=== PATIENT | female | born 1955 | race Caucasian/White ===

== ENCOUNTER 2020-02-10 09:22 | Outpatient (CLI) | payer OTHER, SELFPAY ==
--- NOTE | ~2020-02-10 | US_ITS ---
EXAMINATION: US_ABSCYSTIMG_US DATE: 02/10/2020 10:48 INDICATION: Right branchial cleft cyst TECHNIQUE: A time-out was performed to verify the patient's name, date of , and procedure to be performed . The procedure and its benefits and risks were discussed with the patient. Risks specifically discus sed included bleeding and infection. The patient understood the risks and agreed to proceed. The neck was prepped and draped in the usual sterile manner. 2 mL 1% lidocaine was used for local anesthesia . A 20-gauge needle was advanced into the cyst with continuous sonographic guidance. 12 mm of opaque milky white-colored fluid was aspirated. The needle was removed and a sterile bandage was applied. T here were no immediate complications. FINDINGS: Grayscale ultrasound images demonstrate aspiration needle advanced into a 4.3 x 3.8 x 1.7 cm anechoic brachial cleft cyst at the right neck. IMPRESSION: 1. Successful ultrasound-guided fine needle aspiration of a 4.3 x 3.8 x 1.7 cm branchial cleft cyst at the right neck yielding 12 mL opaque white fluid. Reviewed, dictated and finalized at location A.
== END 2020-02-10 09:23 | disposition home or self-care (01) ==
PROVIDERS: PCP Internal Medicine; Visit Provider Nurse Practitioner
DX: L02.11 Cutaneous abscess of neck (principal)
CPT/HCPCS: 10160; 76942

== ENCOUNTER 2020-02-15 08:19 | Emergency (ER) | payer OTHER, SELFPAY ==
[2020-02-15 08:35] VITALS: BP 110/64; PULSE 92; RESP 16; TEMP 36.7; O2SAT 96
--- NOTE | 2020-02-15 09:04 | ED.URI ---
HPI - URI/Sore Throat General Chief Complaint: Upper Respiratory Infection Stated Complaint: Cough Time Seen by Provider: 02/15/20 09:05 Source: patient Mode of arrival: ambulatory Limitations: no limitations History of Present Illness HPI Narrative: Crystal Andrews is a 64 yo female with a PMH of COPD, anxiety, who comes to express care with complaints of cough and mild COPD exacerbation. She was unable to get into her primary care office because of work yesterday but is feels terrible today and once medications to manage her symptoms. She does not tolerate rescue inhalers well because the albuterol makes her jittery and flighty; she originally asked for Levaquin but refused chest Xray Related Data Home Medications Medication Instructions Recorded Confirmed ipratropium 0.5 mg-albuterol 3 mg 3 ml INHALATION TID PRN ml 03/22/19 02/15/20 (2.5 mg base)/3 mL nebulization soln Allergies Allergy/AdvReac Type Severity Reaction Status Date / Time No Known Allergies Allergy Unverified 02/15/20 08:40 Review of Systems Review of Systems: Narrative: CONSTITUTIONAL: Denies fever, chills, sweats. EYES: Denies visual changes, redness, discharge. ENT: Denies rhinorrhea, congestion, sore throat, otalgia. CARDIOVASCULAR: Denies chest pain, palpitations, edema. RESPIRATORY: mild dyspnea, wheezing, mild cough GASTROINTESTINAL: Denies abdominal pain, nausea, vomiting, diarrhea. GENITOURINARY: Denies dysuria, hematuria, abnormal discharge SKIN: Denies rash or itching. NEUROLOGIC: Denies numbness, or focal weakness. PSYCHIATRIC: Denies anxiety or depression. [facility] Past Medical History Medical History (Updated 02/15/20 @ 09:23 by Chula Gallardo CNP) Pneumothorax of right lung after biopsy Surgical History Surgical History Previous section Family History Family History Mother Hypertension Sibling Patient's sister is in good health Patient's brother is in good health Father Family history of lung cancer Patient's father is Social History Social History Smoking status: Heavy tobacco smoker Alcohol intake: never Comments At time of signature, I agree with nursing past medical, surgical, social and family history. There is no relevant family history pertinent to the presenting complaint. Exam Narrative: Exam Narrative: GENERAL: This is a well-nourished, well-developed patient, in mild distress. HEAD: normocephalic, atraumatic. EYES: PERRL. Sclera clear/white. Vision is grossly intact. EARS: External ears normal, Hearing grossly intact. NOSE: External nose normal without nasal discharge, nares without redness, no rhinorrhea. THROAT: Mucous membranes moist, posterior pharynx pink in color NECK: Neck supple, non-tender CARDIOVASCULAR: Regular rate and rhythm without murmurs, gallops, or rubs. RESPIRATORY: Diminished to auscultation. Breath sounds coarse and equal bilaterally. No wheezes, rales, or rhonchi. GASTROINTESTINAL: Abdomen soft, , SKIN: warm, intact with no suspicious lesions or rash, good texture and turgor. NEURO: awake, alert, and oriented to person, place and time. There were no obvious focal neurologic abnormalities. Steady gait EXTREMITIES: Normal range of motion. BACK: Nontender without deformity Course Course Emergency Course: Cough mild COPD Patient refused chest x-ray-given Zithromax Tessalon and 4 days of steroids. I will not give her Levaquin without knowing that she needs that level of treatment; patient verbalized understanding. Follow-up with PCP Vital Signs Vital signs: Vital Signs Temperature 98.1 F 02/15/20 08:35 Pulse Rate 92 02/15/20 08:35 Respiratory Rate 16 02/15/20 08:35 Blood Pressure 110/64 02/15/20 08:35 Pulse Oximetry 96 02/15/20 08:35 Temperature 98.1 F
== END 2020-02-15 09:28 | disposition home or self-care (01) ==
PROVIDERS: Emergency Provider Nurse Practitioner; PCP Internal Medicine
DX: J44.1 Chronic obstructive pulmonary disease with (acute) exacerbation (principal); F17.200 Nicotine dependence, unspecified, uncomplicated; F41.9 Anxiety disorder, unspecified
CPT/HCPCS: 99213; G0463

== ENCOUNTER 2020-05-27 13:10 | Outpatient (CLI) | payer SELFPAY ==
--- NOTE | ~2020-05-27 | US_ITS ---
EXAMINATION: US_ABSCYSTIMG_US DATE: 05/27/2020 14:35 INDICATION: Right lateral branchial cleft cyst. TECHNIQUE: The procedure including the risks and benefits was discussed with the patient. Risks discu ssed included bleeding, infection, and allergic reaction. The patient understood the risks and agreed to proceed. The skin overlying the anterolateral right neck was prepped and draped in usual sterile fashion. Anesthetic was administered with 1% lidocaine subcutaneously. A 21-gauge needle was advanc ed under continuous ultrasound observation to the cystic lesion of interest. Fluid was aspirated. The needle was removed and the entry site was cleaned and dressed. Post procedure ultrasound demonstra camilo no hemorrhage. FINDINGS: Ultrasound images demonstrate a 3.5 x 2.5 x 3.0 cm cystic lesion at the left neck containin g fluid and small amount of hypoechoic posterior layering debris. The drainage needle was observed wi thin the cyst on real-time imaging which was not recorded. 11 mm of opaque milky white fluid was aspi rated. IMPRESSION: 1. Successful Ultrasound-guided drainage of a right branchial cleft cyst giving 11 mm of opaque cream y white-colored fluid. Reviewed, dictated and finalized at location A. LING OPERATOR IMPRESSION: 1. Successful Ultrasound-guided drainage of a right branchial cleft cyst giving 11 mm of opaque creamy white-colored fluid.
== END 2020-05-27 13:11 | disposition home or self-care (01) ==
PROVIDERS: PCP Internal Medicine; Visit Provider Nurse Practitioner
DX: Q18.0 Sinus, fistula and cyst of branchial cleft (principal)
CPT/HCPCS: 10160; 76942

== ENCOUNTER 2021-01-25 07:04 | Outpatient (CLI) | payer MEDICARE, SELFPAY ==
[2021-01-25 07:50] LABS: Alanine Aminotransferase 13 U/L (4-35); Albumin Level 3.9 g/dL (3.5-5.1); Alkaline Phosphatase 52 U/L (38-126); Anion Gap 5 mmol/L (8-16); Aspartate Amino Transferase 24 U/L (14-36); Bilirubin,Total 0.3 mg/dL (0.2-1.3); Blood Urea Nitrogen 13 mg/dL (7-17); Calcium 9.5 mg/dL (8.4-10.2); Carbon Dioxide 28 mmol/L (22-30); Chloride 105 mmol/L (98-107); Cholesterol 224 mg/dL (0-200); Estimated Glomerular Filt Rate > 60; Glucose 102 mg/dL (65-110); HDL Direct 59 mg/dL; Sodium 138 mmol/L (137-145); Triglycerides 113 mg/dL (<150)
[2021-01-25 08:01] LABS: LDL Cholesterol Direct 115 mg/dL
[2021-01-25 09:49] LABS: Vitamin D 25 Hydroxy 46.2 ng/mL
== END 2021-01-25 07:05 | disposition home or self-care (01) ==
PROVIDERS: PCP Internal Medicine; Visit Provider Internal Medicine
DX: E55.9 Vitamin D deficiency, unspecified (principal); E78.5 Hyperlipidemia, unspecified; Z00.00 Encounter for general adult medical examination without abnormal findings
CPT/HCPCS: 36415; 80053; 80061; 82306

== ENCOUNTER 2021-05-03 13:06 | Outpatient (CLI) | payer MEDICARE, SELFPAY ==
--- NOTE | ~2021-05-03 | US_ITS ---
EXAMINATION: US abscess cyst aspiration DATE: 05/03/2021 13:48 INDICATION: Sinus, fistula, and cyst of brachial cleft, right side. TECHNIQUE: The procedure including the risks, benefits, and alternatives was discussed with the patie nt. Risks discussed included bleeding and infection. The patient understood the risks and agreed to p roceed. The skin overlying the right neck was prepped and draped in usual sterile fashion. Anestheti c was administered with 1% lidocaine subcutaneously. An 18 gauge spinal needle was then used to aspi rated a right neck cyst under continuous sonographic guidance. The entry site was cleaned and dressed . There were no immediate complications. FINDINGS: Ultrasound images demonstrate the needle in a 3.8 x 5.1 x 2.1 cm cyst in right neck. IMPRESSION: 1. Ultrasound-guided needle aspiration of a right second brachial cleft cyst yielding 16 mL of opaque , rogers fluid. Reviewed, dictated and finalized at location A. INCT POLICE CAPTAIN IMPRESSION: 1. Ultrasound-guided needle aspiration of a right second brachial cleft cyst faroese elding 16 mL of opaque, rogers fluid.
== END 2021-05-03 13:07 | disposition home or self-care (01) ==
PROVIDERS: PCP Internal Medicine; Visit Provider Nurse Practitioner
DX: Q18.0 Sinus, fistula and cyst of branchial cleft (principal)
CPT/HCPCS: 10160; 76942

== ENCOUNTER 2021-06-14 09:02 | Emergency (ER) | payer MEDICARE, SELFPAY ==
[2021-06-14 09:26] VITALS: BP 133/55; PULSE 95; RESP 16; TEMP 36.9; O2SAT 99
--- NOTE | 2021-06-14 09:52 | ED.URI ---
HPI - URI/Sore Throat General Chief Complaint: Upper Respiratory Infection Stated Complaint: sinus Infection Time Seen by Provider: 06/14/21 09:35 Source: patient and RN notes reviewed Mode of arrival: ambulatory Limitations: no limitations History of Present Illness HPI Narrative: Patient presents today complaining of 3-day history of rhinorrhea with clear nasal discharge, nasal congestion and sinus pressure, bilateral eye watering, headache, body aches and chills. Denies fever, cough, sore throat. She has been taking Advil with some relief. She did a rapid COVID-19 test at work on the day her symptoms began, and it was negative. MD elicited complaint: rhinorrhea and nasal congestion Related Data Allergies Allergy/AdvReac Type Severity Reaction Status Date / Time No Known Allergies Allergy Verified 01/27/21 08:54 Review of Systems Review of Systems: CONSTITUTIONAL: Denies fever, or sweats.+ Body aches, chills EYES: Denies visual changes, redness, or discharge.+ Eye watering ENT: Denies sore throat, or otalgia.+ Congestion, rhinorrhea CARDIOVASCULAR: Denies chest pain, palpitations, or edema. RESPIRATORY: Denies cough or dyspnea. GASTROINTESTINAL: Denies abdominal pain, nausea, vomiting, or diarrhea. GENITOURINARY: Denies dysuria or hematuria. SKIN: Denies rash, itching, or wounds. MUSCULOSKELETAL: Denies back pain, joint pain, or myalgia. NEUROLOGIC: Denies numbness, tingling, or weakness.+ Headache PSYCH: Denies depression or anxiety. [facility] Past Medical History Medical History Branchial cleft cyst Chronic obstructive pulmonary disease, unspecified Hyperlipidemia, unspecified (11/12/18) Pneumothorax of right lung after biopsy Unspecified asthma, uncomplicated Vitamin D deficiency Surgical History Surgical History Hx of breast augmentation Previous section Family History Family History Mother Hypertension Sibling Patient's sister is in good health Patient's brother is in good health Father Family history of lung cancer Patient's father is Social History Social History Smoking packs per day: 1 Smoking cigarettes per day: 20.0 Years smoked: 30 Smoking pack-years: 30.00 Smoking status: Current every day smoker (Still not wanting to quit) Tobacco type: cigarettes Second hand tobacco smoke exposure: No Alcohol intake: former Substance use: never Substance use type: does not use Comments At time of signature, I have reviewed and agree with nursing past medical, surgical, social and family history unless otherwise noted. Please see nursing chart for further information. There is no relevant family history pertinent to the presenting complaint Exam Narrative: GENERAL: Well-appearing, well-nourished, and in no acute distress. HEAD: Normocephalic, atraumatic. EYES: EOMI. PERRL. No redness or drainage at this time. Conjunctivae normal. ENT: Mucous membranes pink and moist. Nares congested with rhinorrhea. TMs normal bilaterally. Throat normal. Uvula midline. NECK: Normal AROM. Supple. No lymphadenopathy. CHEST: No respiratory distress. Clear to auscultation. HEART: Regular rate and rhythm. No murmur appreciated. Normal peripheral pulses. EXTREMITIES: Normal range of motion. No edema. SKIN: Warm, dry, no rash. Capillary refill normal. Normal skin turgor. NEURO: No focal deficits. Alert and oriented x3. Gait steady. PSYCH: Normal affect. No signs of depression or anxiety. Course Course Level of Care: Express Care Visit Vital Signs Vital signs: Vital Signs Temperature 98.5 F 06/14/21 09:26 Pulse Rate 95 06/14/21 09:26 Respiratory Rate 16 06/14/21 09:26 Blood Pressure 133/55 L 06/14/21 09:26 Pulse Oximetr
== END 2021-06-14 10:33 | disposition home or self-care (01) ==
PROVIDERS: Emergency Provider Nurse Practitioner; PCP Internal Medicine
DX: J06.9 Acute upper respiratory infection, unspecified (principal); Z20.822 Contact with and (suspected) exposure to COVID-19; F17.210 Nicotine dependence, cigarettes, uncomplicated; J44.9 Chronic obstructive pulmonary disease, unspecified; E78.5 Hyperlipidemia, unspecified
CPT/HCPCS: 87426; 99213; C9803; G0463

== ENCOUNTER 2022-02-01 09:48 | Outpatient (CLI) | payer MEDICARE, SELFPAY ==
[2022-02-01 10:45] LABS: Alanine Aminotransferase 16 U/L (6-35); Albumin Level 4.2 g/dL (3.5-5.1); Alkaline Phosphatase 45 U/L (38-126); Anion Gap 12 mmol/L (8-16); Aspartate Amino Transferase 23 U/L (14-36); Bilirubin,Total 0.5 mg/dL (0.2-1.3); Blood Urea Nitrogen 13 mg/dL (7-17); Calcium 9.3 mg/dL (8.4-10.2); Carbon Dioxide 25 mmol/L (22-30); Chloride 102 mmol/L (98-107); Cholesterol 222 mg/dL (0-200); Estimated Glomerular Filt Rate > 60; Glucose 177 mg/dL (65-110); HDL Direct 47 mg/dL; Potassium 3.8 mmol/L (3.4-5.0); Sodium 139 mmol/L (137-145); Triglycerides 107 mg/dL (<150)
[2022-02-01 10:57] LABS: LDL Cholesterol Direct 129 mg/dL
[2022-02-01 11:10] LABS: Thyroid Stimulating Hormone 0.699 uIU/mL (0.465-4.680)
== END 2022-02-01 09:49 | disposition home or self-care (01) ==
PROVIDERS: PCP Internal Medicine; Visit Provider Nurse Practitioner
DX: E78.5 Hyperlipidemia, unspecified (principal); F32.A Depression, unspecified
CPT/HCPCS: 36415; 80053; 80061; 84443

== ENCOUNTER 2022-06-15 09:19 | Outpatient (CLI) | payer MEDICARE, SELFPAY ==
--- NOTE | ~2022-06-15 | US_ITS ---
EXAMINATION: US guide abscess drainage DATE: 06/15/2022 10:37 INDICATION: Right neck second branchial cleft cyst. TECHNIQUE: The procedure including the risks, benefits, and alternatives was discussed with the patie nt. Risks discussed included bleeding and infection. The patient understood the risks and agreed to p roceed. The skin overlying the right neck was prepped and draped in usual sterile fashion. Anestheti c was administered with 1% lidocaine subcutaneously. An 18 gauge needle was used to aspirate fluid f rom the right neck cyst under continuous sonographic guidance. The entry site was cleaned and dressed . There were no immediate complications. FINDINGS: Ultrasound images demonstrate the needle in a 4.1 x 2.3 x 3.2 cm hypoechoic mass in right n josué, consistent with a recurrent second branchial cleft cyst. IMPRESSION: 1. Ultrasound-guided aspiration of a recurrent right second branchial cleft cyst yielding 14 mL opaqu e, rogers fluid. Reviewed, dictated and finalized at location A. R MAKER IMPRESSION: 1. Ultrasound-guided aspiration of a recurrent right second branchial cleft cys t yielding 14 mL opaque, rogers fluid.
== END 2022-06-15 09:20 | disposition home or self-care (01) ==
PROVIDERS: PCP Internal Medicine; Visit Provider Internal Medicine
DX: Q18.0 Sinus, fistula and cyst of branchial cleft (principal); L02.818 Cutaneous abscess of other sites
CPT/HCPCS: 10160; 76942; 88108; 88305

== ENCOUNTER → 2022-06-15 12:15 | Outpatient (REF) | payer MEDICARE, SELFPAY | LOC: ANHLAB 12:15 | PROVIDERS: PCP Internal Medicine; Visit Provider Internal Medicine | DX: R22.1 Localized swelling, mass and lump, neck (principal) | CPT/HCPCS: 88108; 88305 ==

== ENCOUNTER 2023-01-16 09:38 | Outpatient (CLI) | payer MEDICARE, SELFPAY ==
--- NOTE | ~2023-01-16 | DEXA_ITS ---
Bone Density Report Name: JACKIE TOWNSEND Age: 67 Sex: Female Ethnicity: White Date of : 1955 Indication: postmenopausal; screening for osteoporosis; height loss; Referring Provider: MARIELLE ALVAREZ Study: Bone densitometry was performed. Exam Date: January 16, 2023 Accession number: [id number] Bone Density: Region BMD T-score Z-score Classification AP Spine(L1-L4) 1.063 0.1 2.1 Normal Femoral Neck (Left) 0.615 -2.1 -0.5 Osteopenia Total Hip (Left) 0.685 -2.1 -0.8 Osteopenia Femoral Neck (Right) 0.626 -2.0 -0.4 Osteopenia Total Hip (Right) 0.736 -1.7 -0.3 Osteopenia Total Hip Mean 0.710 -1.9 -0.6 Osteopenia World Health Organization criteria for BMD impression classify patients as: Normal (T-score at or above -1.0), Osteopenia (T-score between -1.0 and -2.5), or Osteoporosis (T-score at or below -2.5). 10-year Fracture Risk(1): Major Osteoporotic Fracture 11% Hip Fracture 3.1% Reported Risk Factors: [place] (), Neck BMD=0.615, BMI=21.4, smoking (1) FRAX(R) Version 3.08. Fracture probability calculated for an untreated patient. Fracture probability may be lower if the patient has received treatment. Clinical Information Provided by Patient: Smokes Patient maximum height was 63 Menopause Age: 50 No regular weight bearing exercise Drinks caffeinated beverages Onset of menses at age 13 Number of children 1 Impression: The patient has low bone mass, based on the Left Total Hip T-score. The patient has an estimated ten-year risk of hip fracture of 3.1% and an estimated ten-year risk of major fracture of 11%, based on the WHO FRAX algorithm. The patient has risk factors, including: smoking. Discussion: BONE DENSITY IS LOW AT ONE OR MORE SKELETAL SITES. THE PATIENT'S BMD AND CLINICAL RISK FACTORS CONTRIBUTE TO THIS PATIENT'S INCREASED RISK OF FRACTURE. This patient's lowest T-score is low at one or more skeletal sites. It meets the World Health Organization's (WHO) criteria for ?low bone mass? (T-score between -1.0 and -2.5). The patient's 10-year risk of hip fracture as calculated by FRAX exceeds the threshold where pharmacological therapy is recommended by the National Osteoporosis Foundation (NOF). However, all treatment decisions require clinical judgment and consideration of individual patient factors, including patient preferences, comorbidities, previous drug use, risk factors not captured in the FRAX model (e.g., frailty, falls, vitamin D deficiency, increased bone turnover, interval significant decline in bone density) and possible under or overestimation of fracture risk by FRAX. The patient should follow a healthful lifestyle (good nutrition with adequate calcium and vitamin D, and appropriate weight-bearing exercise). Follow-Up: Consider a repeat
== END 2023-01-16 09:39 | disposition home or self-care (01) ==
PROVIDERS: PCP Family Medicine; Visit Provider Family Medicine
DX: Z78.0 Asymptomatic menopausal state (principal); M85.89 Other specified disorders of bone density and structure, multiple sites
CPT/HCPCS: 77080

== ENCOUNTER 2023-01-31 08:26 | Outpatient (CLI) | payer MEDICARE, SELFPAY ==
[2023-01-31 09:34] LABS: Hematocrit 43.2 % (37.0-47.0); Mean Corpuscular HGB Conc 32.4 g/dl (32-36); Mean Corpuscular Hemoglobin 30.1 pg (26-34); Mean Corpuscular Volume 92.9 fl (80-100); Mean Platelet Volume 10.6 fl (7.4-10.4); Platelet Count Result 199 k/mm3 (150-375); Red Blood Count 4.65 M/mm3 (4.2-5.4); Red Cell Distribution Width 13.2 % (11.5-14.5); White Blood Count 6.7 K/mm3 (4.5-10.0)
[2023-01-31 09:47] LABS: Alanine Aminotransferase 16 U/L (6-35); Albumin Level 4.1 g/dL (3.5-5.1); Alkaline Phosphatase 50 U/L (38-126); Anion Gap 4 mmol/L (8-16); Aspartate Amino Transferase 24 U/L (14-36); Bilirubin,Total 0.6 mg/dL (0.2-1.3); Blood Urea Nitrogen 14 mg/dL (7-17); Calcium 9.3 mg/dL (8.4-10.2); Carbon Dioxide 28 mmol/L (22-30); Chloride 105 mmol/L (98-107); Estimated Glomerular Filt Rate > 60; Glucose 90 mg/dL (65-110); Potassium 3.8 mmol/L (3.4-5.0); Sodium 137 mmol/L (137-145)
[2023-01-31 09:54] LABS: Hemoglobin A1C 5.6 % (<5.7)
== END 2023-01-31 08:27 | disposition home or self-care (01) ==
LOC: ANHLAB 08:30
PROVIDERS: PCP Family Medicine; Visit Provider Family Medicine
DX: R00.2 Palpitations (principal); J45.909 Unspecified asthma, uncomplicated; J44.9 Chronic obstructive pulmonary disease, unspecified; E55.9 Vitamin D deficiency, unspecified; R73.9 Hyperglycemia, unspecified; Z72.0 Tobacco use
CPT/HCPCS: 36415; 80053; 83036; 85027

== ENCOUNTER 2023-08-09 08:50 | Outpatient (CLI) | payer MEDICARE, SELFPAY ==
--- NOTE | ~2023-08-09 | US_ITS ---
EXAMINATION: US guide abscess drainage DATE: 08/09/2023 09:55 INDICATION: Right second branchial cleft cyst. TECHNIQUE: The procedure including the risks, benefits, and alternatives was discussed with the patie nt. Risks discussed included bleeding and infection. The patient understood the risks and agreed to p roceed. The skin overlying the right neck was prepped and draped in usual sterile fashion. Anestheti c was administered with 1% lidocaine subcutaneously. An 18 gauge needle was used to aspirate the rig ht branchial cleft cyst under continuous sonographic guidance. The entry site was cleaned and dressed . There were no immediate complications. FINDINGS: Ultrasound images demonstrate the needle in a 3.7 x 2.6 x 3.1 cm right second branchial agustina ft cyst. IMPRESSION: 1. Ultrasound-guided needle aspiration of a recurrent right second branchial cleft cyst yielding 15 m L opaque, rogers fluid. Reviewed, dictated and finalized at location A. IMPRESSION: 1. Ultrasound-guided needle aspiration of a recurrent right second branchial cl eft cyst yielding 15 mL opaque, rogers fluid.
== END 2023-08-09 08:51 | disposition home or self-care (01) ==
PROVIDERS: PCP Family Medicine; Visit Provider Nurse Practitioner
DX: L02.91 Cutaneous abscess, unspecified (principal); Q18.0 Sinus, fistula and cyst of branchial cleft; L02.12 Furuncle of neck
CPT/HCPCS: 10160

== ENCOUNTER 2024-08-09 11:57 | Outpatient (CLI) | payer MEDICARE, SELFPAY ==
--- NOTE | ~2024-08-09 | US_ITS ---
EXAMINATION: US_ABSCYSTIMG_US DATE: 08/09/2024 13:33 INDICATION: Branchial cleft cyst TECHNIQUE: The procedure including the risks and benefits was discussed with the patient. Risks discu ssed included bleeding and infection. The patient understood the risks and agreed to proceed. The sk in overlying the right neck was prepped and draped in usual sterile fashion. Anesthetic was administ ered with 1% lidocaine subcutaneously. An 18 gauge needle was advanced under continuous ultrasound o bservation into the cystic lesion of concern. Fluid was aspirated. The needle was removed and the ent ry site was cleaned and dressed. Post procedure ultrasound demonstrated no hemorrhage. FINDINGS: Ultrasound images demonstrate a 3.4 x 3.3 x 2.8 cm complex cystic lesion at the right neck which contains mixed anechoic and hypoechoic complex fluid. The lesion is nearly completely decompres sed at the conclusion of the procedure. 19 mL of opaque milky white fluid was aspirated. IMPRESSION: 1. Successful Ultrasound-guided drainage of a right branchial cleft cyst yielding 19 mL of opaque cre randolph white-colored fluid. Reviewed, dictated and finalized at location A. IMPRESSION: 1. Successful Ultrasound-guided drainage of a right branchial cleft cyst yieldi ng 19 mL of opaque creamy white-colored fluid.
== END 2024-08-09 11:58 | disposition home or self-care (01) ==
PROVIDERS: PCP Family Medicine; Visit Provider Family Medicine
DX: Q18.0 Sinus, fistula and cyst of branchial cleft (principal)
CPT/HCPCS: 10160; 42999; 76942

== ENCOUNTER 2024-09-03 14:20 | Outpatient (CLI) | payer MEDICARE, SELFPAY ==
[2024-09-03 15:31] LABS: Estimated Glomerular Filt Rate > 60
--- OUTSIDE RECORDS SUMMARY | 2024-09-03 15:41 | XMS_ITS | Referral Summary ---
Author Organization [facility] Address [address] [place] [address] Care Team Providers Care Body Art Technician Name Role Phone Jori Ta MD Primary Care Provider [phone] Encounters Date Type Department Care Team Description 09/02/2024 Telephone [place] [facility] ([facility]) - [facility] [address] [facility] [address]th [place] [address] [place] [address] Chula Salazar MS 08/29/2024 10:20 AM CDT Office Visit [place] [facility] ([facility]) - [facility] [address] [facility] 2nd Floor, [address] [place] [address] Naveen Gonzalez MD Sinus, fistula and cyst of branchial cleft (Primary Dx) from Last 3 Months Allergies No known active allergies Medications No known medications Active Problems Patient Care Coordination No te Formatting of this note migh t be different from the original. sinus No known active problems Social History Tobacco Use Types Packs/Day Years Used Date Smoking Tobacco: Never Assessed Comments Unknown Sex and Gender Information Value Date Recorded Sex Assigned at Not on file Legal Sex Female 8:34 AM CDT Gender Identity Not on file Sexual Orientation Not on file Plan of Treatment Not on file Insurance MEDICARE Care Teams Body Art Technician Relationship Specialty Start Date End Date Jori Ta MD [address] [place] [address] PCP - General Family Practice 08/16/24
--- OUTSIDE RECORDS SUMMARY | 2024-09-03 15:41 | XMS_ITS | Clinical Summary ---
Author Organization [facility] Address [address] [place] [address] Care Team Providers Care Clinical Laboratory Director Name Role Phone Jori Ta MD Primary Care Provider [phone] [phone] Allergies No known active allergies Medications No known medications Active Problems Patient Care Coordination No te Formatting of this note migh t be different from the original. 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) from Last 3 Months Social History Tobacco Use Types Packs/Day Years Used Date Smoking Tobacco: Never Assessed Comments Unknown Sex and Gender Information Value Date Recorded Sex Assigned at Not on file Legal Sex Female 8:34 AM CDT Gender Identity Not on file Sexual Orientation Not on file Obstetrics History Plan of Treatment Health Maintenance Due Date Last Done Comments Breast Cancer Screening-Mammogram 1955 Colon Cancer Screening-Colonoscopy 1955 Depression Screening 1955 Fall Risk Assessment 1955 Hepatitis C Screening 1955 Osteoporosis Screening-Bone Density Scan 1955 DTaP/Tdap/Td Vaccine (1 - Tdap) 10/08/1966 Hepatitis B Screening 10/08/1973 Pneumococcal vaccine 65+ (1 of 1 - PCV) 10/08/2005 Zoster Vaccine (1 of 2) 10/08/2005 Well Visit 65+ 10/08/2020 Covid-19 Vaccine (2 - season) 2024 Influenza Vaccine (Season Ended) [address] [place] [address] MEDICARE Care Teams Clinical Laboratory Director Relationship Specialty Start Date End Date Jori Ta MD [address] [place], [place] [id number] PCP - General Family Practice 08/16/24
--- OUTSIDE RECORDS SUMMARY | 2024-09-03 15:41 | XMS_ITS | Encounter Summary ---
Author Organization [facility] Address [address] [place] [address] Phone Care Team Providers Care City Planning Teacher Name Role Phone Jori Ta MD Primary Care Provider [phone] [phone] Encounter Details Date Type Department Care Team (Late st Contact Info) Description 09/02/2024 Telephone [place] [facility] ([facility]) - [facility] [address] [facility] 11th [place] [address] [place] [address] Chula Salazar MS Social History Tobacco Use Types Packs/Day Years Used Date Smoking Tobacco: Never Assessed Comments Unknown Sex and Gender Information Value Date Recorded Sex Assigned at Not on file Legal Sex Female 8:34 AM CDT Gender Identity Not on file Sexual Orientation Not on file documented as of this encounter Miscellaneous Notes * Telephone Encounter - Misha Cervantes - 09/02/2024 12:45 PM CDT Imaging called re order, IB sent. documented in this encounter Plan of Treatment Not on file documented as of this encounter Visit Diagnoses Not on filedocumented in this encounter Care Teams City Planning Teacher Relationship Specialty Start Date End Date Jori Ta MD [address] [place], [place] [id number] PCP - General Family Practice 08/16/24 documented as of this encounter
== END 2024-09-03 14:21 | disposition home or self-care (01) ==
PROVIDERS: PCP Family Medicine
DX: Q18.0 Sinus, fistula and cyst of branchial cleft (principal)
CPT/HCPCS: 70491; Q9967

== ENCOUNTER 2025-01-01 08:43 | Outpatient (CLI) | payer MEDICARE, SELFPAY ==
--- OUTSIDE RECORDS SUMMARY | 2025-01-01 08:47 | XMS_ITS | Clinical Summary ---
Author Organization [facility] Address [address] [place] [address] Care Team Providers Care Finisher Plate Name Role Phone Jori Ta MD Primary Care Provider [phone] Allergies No known active allergies Medications mirtazapine (REMERON) 15 mg tabletIndicatio ns:major depressive disorder Take 1 tablet (15 mg total) by mouth nightly 09/04/2024 Active LORazepam (ATIVAN) 1 mg tabletIndicatio ns:anxiety Take 1-2 tablets (1-2 mg total) by mouth 3 (three) times a day as needed for anxiety 08/23/2024 Active umeclidinium (INCRUSE ELLIPTA) 62.5 mcg/actuation blister with deviceIndicatio ns:Bronchospasm Prevention with COPD Inhale 1 puff (62.5 mcg total) every morning Active ibuprofen 200 mg tab/capIndicati ons:Pain Take 3 tablet/capsu le (600 mg total) by mouth every 6 (six) hours as needed for pain 3 tablets Active HYDROcodone-michael taminophen (NORCO) 5-325 mg per tabletIndicatio ns:Pain Take 1 tablet by mouth every 6 (six) hours as needed for pain 15 tablet 2024 Active Active Problems Patient Care Coordination No te Formatting of this note migh t be different from the original. 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 Encounters Date Type Department Care Team Description 10/14/2024 10:40 AM CDT [facility] [address] [place] [address] Naveen Gonzalez MD Congenital branchial cleft cyst (Primary Dx) 2024 12:10 PM CDT - 2024 3:35 PM CDT Surgery [facility] [address] [place] [id number] Naveen Gonzalez MD Excision branhcial cleft cyst 2024 11:17 AM CDT Anesthesia Event [facility] ([facility]) [address] [place] [id number] Josefina Estrella MD Meiners, Alea Marie, NP 2024 9:43 AM CDT - 2024 3:28 PM CDT Hospital Encounter [facility]) [address] [place] [address] Naveen Gonzalez MD Congenital branchial cleft cyst [Q18.0] (Primary Dx); Congenital branchial cleft cyst Discharge Disposition: Discharge to home or self care from Last 3 Months Surgical History Surgery Date Site/Laterality Comments LUNG BIOPSY 05/08/1993 - 05/07/1994 lung infection SECTION 05/08/1977 - 05/07/1978 AUGMENTATION MAMMOPLASTY 05/08/2003 - 05/07/2004 Bilater al Medical History Medical History Date Comments COPD (chronic obstructive pulmonary disease) Anxiety Family History Medical History Relation Name Comments Anesthesia problems Neg Hx Social History Tobacco Use Types Packs/Day Years Used Date Smoking Tobacco: Every Day Cigarettes 1 37.7 Started: 1987 Passive Smoke Exposure: Past Smokeless Tobacco: Never Tobacco Cessation:Ready to Q uit: Not Asked; Counseling Given: Not Answered AUDIT-C Answer Date Recorded Q1: How often do you have a drink containing alcohol? Never 2024 Q2: How many drinks containi ng alcohol do you have on a typical day when you are drinking? Patient does not drink Q3: How often do you have si x or more drinks on one occasion? Never 2024 Personal Safety Answer Date Recorded Have you ever been in or are you currently in a harmful physical or emotional relationship or is someone making you feel afraid or unsafe? Denies 2024 Comments Unknown Sex and Gender Information Value Date Recorded Sex Assigned at Not on file Legal Sex Female 8:34 AM CDT Gender Identity Not on file Sexual Orientation Not on file Obstetrics History Last Filed Vital Signs Vital Sign Reading Time Taken Comments Blood Pressure 138/76 2024 2:50 PM CDT Pulse 79 2024 2:50 PM CDT Temperature 36 C (96.8 F) 2024 1:20 PM CDT Respiratory Rate 14 2024 2:50 PM CDT Oxygen Saturation 99% 2024 2:50 PM CDT Inhaled Oxygen Concentration - - Weight 55.3 kg (122 lb) 10/14/2024 10:52 AM CDT Height 160 cm (5' 3) 09/25/2024 9:14 AM CDT Body Mass Index 21.61 09/25/2024 9:14 AM CDT Plan of Treatment Health Maintenance Due Date Last Done Comments Breast Cancer Screening-Mammogram 1955 Colon Cancer Screening-Colonoscopy 1955 Depression Screening 1955 Hepatitis C Screening 1955 Osteoporosis Screening-Bone Density Scan 1955 DTaP/Tdap/Td Vaccine (1 - Tdap) 10/08/1966 Hepatitis B Screening 10/08/1973 Pneumococcal vaccine 65+ (1 of 2 - PCV) 10/08/1974 Lung Cancer Screening 10/08/2005 Zoster Vaccine (1 of 2) 10/08/2005 Well Visit 65+ 10/08/2020 Covid-19 Vaccine (2 - season) 2024 Influenza Vaccine (#1) 2025 Fall Risk Assessment 2025 2024 Procedures Procedure Name Priority Date/Time Associated Diagnosis Comments SURGICAL PATHOLOGY Routine 2024 12 :35 PM CDT Congenital branchial cleft cyst ANESTHESIA INTUBATION Routine 2024 11:48 AM CDT EXCISION CYST/LESION/MASS - NECK 2024 11:19 AM CDT Congenital branchial cleft cyst Special Needs Ligasure from Last 3 Months Results * Surgical pathology (2024 12:35 PM CDT) Tissue (Cyst) 2024 12: 35 PM CDT Narrative PATHOLOGY [facility] - 10/13/2024 4:53 PM CDT EPIC results best viewed via link to PDF [facility] [place] [address] Note to Patients: This report may contain a detailed description of human tissue sent by a health care provider to the laboratory for pathologic evaluation. The content of this report is essential for diagnosis and may provide important critical findings. This information may be unfamiliar to patients to review without a medical professional present. It is advised that the patient review this report in the presence of a health care provider who can answer questions and explain the details. SURGICAL PATHOLOGY REPORT FINAL Patient Name: CRYSTAL TOWNSEND Gender: F : 1955 (Age: 69) Address: [address] [place], [place] [id number] Hospital #: [id number] Taken:2024 Received:2024 Reported: 10/13/2024 Patient Type: [facility] Service: Surgery Location: Physician(s): Claudia Cuevas M.D. Diagnosis: A. Right neck cyst, excision: - Benign squamous lined cyst, compatible with a branchial cleft cyst [facility]/10/13/2024 16:53 By this signature, I attest that the above diagnosis is based upon my personal examination of the slides(and/or other material indicated in the diagnosis). 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 Operative Procedure: Right branchial cleft cyst excision. Specimen(s) Received: A: Right neck cyst Gross Description: Received in formalin labeled with the patient's identifiers and right neck cyst is a 2.8 x 2.0 x 1.4 cm intact cyst. The partially smooth and roughened rogers-zamarripa external surface is inked black. Sectioning reveals it to be filled with rogers fluid and soft rogers material. The light zamarripa internal surface is partially smooth and bosselated. Birth Attendant sections are submitted in A1. Jar 1. dxb/10/10/2024 16:47 PA(s): MARCOS Fontaine, JENY(ASCP)CM By this signature, I attest that the above diagnosis is based upon my personal examination of the slides(and/or other material). Addenda/Procedures The performance characteristics of some immunohistochemical stains, fluorescence in-situ hybridization tests and immunophenotyping by flow cytometry cited in this report (if any) were determined by the Surgical Pathology and Flow Cytometry Departments at [facility] as part of an ongoing quality improvement coordinator program and in compliance with federally mandated regulations drawn from the Clinical Laboratory Improvement Act of 1988 (CLIA '88). Some of these tests rely on the use of analyte specific reagents and are subject to specific labeling requirements by the US Food and Drug Administration. Such diagnostic tests may only be performed in a facility that is certified by the Department of Health and Human Services as a high complexity laboratory under CLIA '88. The FDA has determined that such clearance or approval is not necessary. This test is used for clinical purposes. It should not be regarded as investigational or for research. Nevertheless, federal rules concerning the medical use of analyte specific reagents require that the following disclaimer be attached to the report: This test was developed and its performance characteristics determined by the Surgical Pathology and Flow Cytometry Departments of [facility]. It has not been cleared or approved by the U. S. Food and Drug Administration. IMAGES AND SCANNED DOCUMENTS, IF INCLUDED, ONLY VIEWABLE IN PDF VERSION OF REPORT us Naveen Gonzalez MD LAB PATHOLOGY ORDERABL ES Final Result PATHOLOGY [facility] 3rd Floor [place], [place] [phone] * Airway (2024 11:48 AM CDT) Narrative Felix Santos MD - 2024 11:48 AM CDT Felix Santos MD 2024 11:49 AM Airway Patient location: OR Urgency: elective Date/time: 2024 11:27 AM Indications for airway management: anesthesia Difficult airway: no Staff: Supervising provider: Josefina Estrella MD Placed by: Resident: Sadie Chopra DO Emergent airway documentation: Risks and benefits discussed: yes Consent obtained: yes Consent given by: patient Airway prep: Preoxygenated: yes Patient position: sniffing Mask difficulty assessment: 1 - vent by mask Spontaneous ventilation during airway: absent Sedation level during airway: GA Final airway details: Final airway type: endotracheal airway Tube type: ETT ETT size: 7.0 mm Cuffed: yes Technique used for successful ETT placement: video laryngoscopy Insertion site: oral Blade type: Luis Enrique Video blade type: Toth Blade size: 3 Cormack-Lehane (video): grade I - full view of glottis Cuff inflated with: air ETT to lips: 24 cm Placement verified by: auscultation and CO2 detection Airway secured with: silk tape Number of attempts: 2 Ventilation between attempts: BVM us Josefina Estrella MD ANESTHESIA ORDERABLES Fin al Result from Last 3 Months Insurance MEDICARE MEDICARE Care Teams Finisher Plate Relationship Specialty Start Date End Date Jori Ta MD [address] [place] [address] PCP - General Family Practice 08/16/24
[2025-01-01 10:15] LABS: Alanine Aminotransferase 13 U/L (6-35); Albumin Level 4.0 g/dL (3.5-5.1); Alkaline Phosphatase 58 U/L (38-126); Anion Gap 4 mmol/L (4-12); Aspartate Amino Transferase 29 U/L (14-36); Bilirubin,Total 0.5 mg/dL (0.2-1.3); Blood Urea Nitrogen 11 mg/dL (7-17); Calcium 9.5 mg/dL (8.4-10.2); Carbon Dioxide 25 mmol/L (22-30); Chloride 106 mmol/L (98-107); Cholesterol 214 mg/dL (0-200); Estimated Glomerular Filt Rate > 60; Glucose 98 mg/dL (65-110); HDL Direct 43 mg/dL; Potassium 4.0 mmol/L (3.4-5.0); Sodium 135 mmol/L (137-145); Total Protein 6.7 g/dL (6.3-8.2); Triglycerides 103 mg/dL (<150)
[2025-01-01 10:18] LABS: Hematocrit 42.2 % (37.0-47.0); Hemoglobin 13.6 g/dL (12.0-15.0); Immature Granulocyte Percent A 0.1 % (0-0.5); Lymphocytes Absolute Auto 2.62 K/mm3 (0.9-3.2); Mean Corpuscular HGB Conc 32.2 g/dl (32-36); Mean Corpuscular Hemoglobin 29.4 pg (26-34); Mean Corpuscular Volume 91.3 fl (80-100); Nucleated Red Blood Cells Absolute Auto 0.000 K/mm3 (0.0-0.012); Nucleated Red Blood Cells Perc 0.0 % (0.0-0.2); Platelet Count Result 226 k/mm3 (150-375); Red Blood Count 4.62 M/mm3 (4.2-5.4); White Blood Count 7.0 K/mm3 (4.5-10.0)
[2025-01-01 11:10] LABS: Vitamin B12 237.0 pg/mL (239-931)
== END 2025-01-01 08:44 | disposition home or self-care (01) ==
PROVIDERS: PCP Family Medicine; Visit Provider Family Medicine
DX: E78.5 Hyperlipidemia, unspecified (principal); F41.9 Anxiety disorder, unspecified; E55.9 Vitamin D deficiency, unspecified; J44.9 Chronic obstructive pulmonary disease, unspecified; G47.00 Insomnia, unspecified; Z79.899 Other long term (current) drug therapy
CPT/HCPCS: 36415; 80053; 80061; 82172; 82306; 82607; 85025